=== PATIENT | male | born 1955 | race Caucasian/White ===

== ENCOUNTER → 2020-06-11 | Outpatient (CLI) | payer OTHER ==
[2015-07-31 14:39] VITALS: BP 148/72
[~2020-06-11] MED LIST: ATOR10TA60 PO; CLON-77 PO; GARL100T PO; LOSA-73 PO; OMEP20CA16 PO; SERT100T PO; SIMV40TA PO; TELM40TA PO
[2020-06-11 10:49] LABS: ALBUMIN 4.2 g/dL (3.4-5.0); C-REACTIVE PROTEIN 1.2 mg/L (0-3.3); CALCIUM 9.2 mg/dL (8.5-10.1); GFR 75.5; POTASSIUM 4.5 mmol/L (3.5-5.1)
[2020-06-11 11:33] LABS: BASO # 0.1 x10^3/uL (0.0-0.2); BASO % 1 % (0-3); EOS # 0.1 x10^3/uL (0.0-0.7); EOS % 2 % (0-3); HEMOGLOBIN 15.2 g/dL (13.0-17.5); LYMPH # 1.8 x10^3/uL (1.0-4.8); LYMPH % 35 % (24-48); MEAN CORPUSCULAR HEMOGLOBIN 30 pg (25-35); MEAN CORPUSCULAR HGB CONC 33 g/dL (31-37); MEAN CORPUSCULAR VOLUME 90 fL (79-100); MONO # 0.5 x10^3/uL (0.0-1.1); MONO % 9 % (0-9); NEUT # 2.7 x10^3/uL (1.8-7.7); NEUT % 53 % (31-73); PLATELET COUNT 245 x10^3/uL (140-400); RED BLOOD COUNT 5.13 x10^6/uL (4.30-5.70); RED CELL DISTRIBUTION WIDTH 13.1 % (11.5-14.5); WHITE BLOOD COUNT 5.1 x10^3/uL (4.0-11.0)
[2020-06-11 11:59] LABS: PROTHROMBIN TIME PATIENT 12.2 SEC (11.7-14.0)
--- NOTE | 2020-06-11 13:22 | EKG ---
[facility] [address] [place] [address] Test Date: 2020-06-11 Test Time: 12:33:01 Pat Name: ROXANA GREEN Department: Room: Gender: M [employer] Maker Custom: : 1955 Requested By: ANNALISA CAMPUZANO Order Number: [id number] Reading MD: Merrill Knight MD Measurements Intervals [place] Rate: 75 P: -21 RI: 170 QRS: 19 QRSD: 92 T: 34 QT: 386 QTc: 434 Interpretive Statements SINUS RHYTHM NORMAL ECG RI6.02 No previous ECG available for comparison Electronically Signed On 06-12-2020 10:23:38 CDT by Merrill Knight MD
--- NOTE | 2020-06-11 15:18 | RAD ---
CHEST PA LATERAL INDICATION: Reason: joint prehab patient-hx hypertension-preop eval / Spl. Instructions: / History: . COMPARISON STUDY: None. FINDINGS: Lungs: Normal lung volume. No pulmonary mass or consolidation. The tracheobronchial tree and hilar structures are normal. Pleura: No pleural effusion or pneumothorax. Heart and Mediastinum: The cardiomediastinal silhouette is normal. The great vessels of the thorax are normal. Bones and Soft Tissues: The bones and soft tissues are within normal limits. IMPRESSION: No acute cardiopulmonary process. Electronically signed by: Sumanth Tucker MD (06/11/2020 3:15 PM) [id number]
[2020-06-12 00:08] LABS: HEMOGLOBIN A1C 5.8 % (4.8-5.6)
== END ==
LOC: SURGPAT 12:31
PROVIDERS: ATTEND Orthopaedic Surgery
DX: Z01.818 Encounter for other preprocedural examination (principal); M17.11 Unilateral primary osteoarthritis, right knee; I10 Essential (primary) hypertension
CPT/HCPCS: 36415; 71046; 80048; 82040; 82306; 83036; 85025; 85610; 85730; 86140; 87641; 93005

== ENCOUNTER 2020-06-19 11:43 | Inpatient (IN) | payer OTHER ==
[~2020-06-19] VITALS: Ht 182.9 cm; Wt 95.3 kg
[2020-06-19] VITALS (8 sets, daily range): BP systolic 127–142; BP diastolic 77–84
[2020-06-19] MEDS ORDERED: PROCHLORPERAZINE 10 MG/2 ML VIAL. IV PRN (12:30)
[2020-06-19] MEDS ORDERED: fentaNYL PF VIAL 100 MCG/2 ML VIAL IV PRN (12:30)
[2020-06-19] MEDS ORDERED: ONDANSETRON PF 4 MG/2 ML VIAL. IV PRN (12:30)
[2020-06-19] MEDS ORDERED: HYDROmorphone 2 MG/ML VIAL IV PRN (12:30)
[2020-06-19] MEDS ORDERED: SCOPOLAMINE 1.5MG PATCH. TD ONE (12:45)
[2020-06-19] MEDS: IV RINGERS,LACTATED 1000ML 1,000 ML IV SCH ×2 (12:58→15:19)
[2020-06-19 12:59] LABS: PROTHROMBIN TIME PATIENT 13.6 SEC (11.7-14.0)
[2020-06-19] MEDS: MELOXICAM 7.5 MG TABLET PO SCH (12:59)
[2020-06-19] MEDS ORDERED: TRANEXAMIC ACID 1,000 MG in IV NORMAL SALINE 50ML 50 ML INJ ONE ×2 (13:00→15:00)
[2020-06-19] MEDS ORDERED: ACETAMINOPHEN 500 MG TABLET PO ONE (13:00)
[2020-06-19] MEDS ORDERED: GABAPENTIN 300 MG CAPSULE. PO ONE (13:00)
[2020-06-19] MEDS ORDERED: fentaNYL PF VIAL 250 MCG/5 ML VIAL ONE (13:02)
[2020-06-19] MEDS ORDERED: IV NORMAL SALINE 1000ML BAG 1,000 ML IV SCH (13:24)
[2020-06-19] MEDS ORDERED: VANCOMYCIN 1 GM VIAL. ONE (13:29)
[2020-06-19] MEDS ORDERED: fentaNYL PF VIAL 100 MCG/2 ML VIAL IVP PRN (13:30)
[2020-06-19] MEDS ORDERED: 0.9 % SODIUM CHLORIDE 10 ML DISP.SYRIN. IV PRN (13:30)
[2020-06-19] MEDS ORDERED: ZOLPIDEM 5 MG TABLET. PO PRN (13:30)
[2020-06-19] MEDS ORDERED: MORPHINE SULFATE 2 MG/ML VIAL. IVP PRN (13:30)
[2020-06-19] MEDS ORDERED: diphenhydrAMINE 50 MG/ML VIAL IVP PRN (13:30)
[2020-06-19] MEDS ORDERED: CALCIUM CARBONATE 500 MG TAB.CHEW PO PRN (13:30)
[2020-06-19] MEDS ORDERED: DEXTROSE 50% 25 GM / 50ML DISP.SYRIN. IV PRN (13:30)
[2020-06-19] MEDS ORDERED: PROCHLORPERAZINE 5 MG TABLET. PO PRN (13:30)
[2020-06-19] MEDS ORDERED: ONDANSETRON PF 4 MG/2 ML VIAL. ONE (13:55)
[2020-06-19] MEDS ORDERED: DEXAMETHASONE SOD PHOS 4 MG/ML VIAL ONE (13:55)
[2020-06-19] MEDS ORDERED: MORPHINE SULFATE 5 MG, KETOROLAC 30MG VIAL 30 MG, ROPIVacaine 0.5% PF 60 ML, EPINEPHrin... INT ART ONE (14:00)
[2020-06-19] MEDS ORDERED: PROPOFOL 10 MG/ML (20ML) VIAL. IV ONE (14:48)
[2020-06-19] MEDS ORDERED: SEVOFLURANE > 120 MINUTES. IH ONE (14:48)
[2020-06-19] MEDS ORDERED: LIDOCAINE 2% PF 5 ML VIAL. ONE (14:48)
[2020-06-19] MEDS ORDERED: KETOROLAC 30 MG/ML VIAL. ONE (14:57)
--- NOTE | 2020-06-19 15:06 | PDOC4 ---
Operative Note Operative Note Date of surgery: 06/19/2020 Preoperative diagnosis: Degenerative joint disease right knee Postoperative diagnosis: Same Operative procedure: Right total knee arthroplasty Surgeon: Tarun Anesthesia: General Estimated blood loss: 50 cc Complications: None Drains: Intra-articular pain catheter and Hemovac drain right knee Specimens: Articular surfaces to pathology Operative indications: Please see my previous clinic notes for detailed op erative indications and note that patient has failed nonoperative management for his degenerative change of the right knee and has severe pain affecting his activities of daily living. We had discussed total knee arthroplasty the possibility of infection instability premature wear or loosening nerve or blood vessel damage medical or other anesthetic complications among others. All his questions were answered he agrees to proceed with surgical evaluation and treatment. Operative text: Patient was identified procedure verified patient placed in the supine position on the operating table. After adequate amounts of general anesthesia were administered the right lower extremity was prepped and draped in standard sterile fashion with a thigh tourniquet. After timeout was performed patient procedure identified and verified the right lower extremity was exsanguinated by Esmarch bandage tourniquet inflated to 300 mmHg a midline incision was made with a mid vastus extending to a medial parapatellar approach, patella was everted fat pad was excised distal femur was drilled and distal femoral guide set at a standard cut and 5 degrees. External tibial cutting jig was aligned to the second toe and extension gap showed good alignment. Distal femoral guide was chosen for posterior referencing due to the lack of significant deformity. Based on measurements a size 8 distal femoral cutting block was placed in the appropriate rotation and AP and chamfer cuts were then made. Flexion extension gaps were balanced with a moderate medial release, a size G tibial component was placed drilled and broached and trial fitting carried out with a size 10 medial congruent tibial insert. Excellent stability range of motion and ligament balance was obtained. I elected not to resurface due to good remaining cartilage. Femoral lug holes were drilled trial components were removed bleeding points controlled by electrocautery after thorough irrigation with normal saline solution and the following William persona components were cemented with polymethylmethacrylate cement: A right size G persona natural tibia component, a size 8 cruciate retaining standard right femoral component and a vitamin E medial congruent 10 mm height polyethylene articular surface locked in place. Thorough irrigation carried out normal saline solution excess cement was removed irrigation carried out with dilute Betadine followed by another liter of normal saline solution with pulse lavage. Hemovac drain and intra-articular catheter were placed intra-articular catheter mixture was injected throughout the joint capsule particular attention to around the periosteal surfaces 1 g vancomycin was placed in the joint and the retinacular closure accomplished with #1 PDS strata fix suture in a running fashion subcutaneous closure with buried 2-0 Vicryl suture subcuticular 3-0 strata fix Monocryl, and a diane dressing was placed. Patient was returned to r ecovery room in stable condition having tolerated the procedure well toes were noted to be warm pink following deflation of the tourniquet after total tourniquet time of about 1 hour. ANNALISA CAMPUZANO MD Jun 19, 2020 15:06
[2020-06-19] MEDS ORDERED: PROCHLORPERAZINE 10 MG/2 ML VIAL. ONE (15:11)
[2020-06-19] MEDS: MORPHINE SULFATE 2 MG/ML VIAL. IV PRN ×2 (15:20→15:44)
[2020-06-19] MEDS ORDERED: fentaNYL PF VIAL 100 MCG/2 ML VIAL ONE (15:21)
[2020-06-19] MEDS: fentaNYL PF VIAL 100 MCG/2 ML VIAL IV PRN ×2 (15:22→15:44)
--- NOTE | 2020-06-19 15:48 | RAD ---
Right knee 2 views INDICATION: Postop COMPARISON: 04/05/2020 right knee x-rays FINDINGS: Interval right total knee arthroplasty in good alignment. There is a surgical drain in the operative bed in the gas and fluid in the joint space is present as expected for immediate postoperative appearance. Soft tissues otherwise unremarkable. No acute or aggressive appearing osseous lesions. IMPRESSION: Expected immediate postoperative appearance of right total knee arthroplasty. Electronically signed by: Tomasz Ordonez MD (06/19/2020 3:45 PM) [facility]
[2020-06-19] MEDS ORDERED: WARFARIN 7.5 MG TABLET. PO ONE (16:00)
[2020-06-19] MEDS: FERROUS SULFATE 325 MG TABLET. PO SCH (17:00)
[2020-06-19] MEDS: HYDROmorphone 2 MG TABLET PO PRN ×2 (17:01→21:08)
--- NOTE | 2020-06-19 17:12 | NUR ---
Recieved from PACU per bed, alert/oriented, states discomfort level 10 RLE, IAC, Hemovac in place, ice pack for comfort, IVF infusing into left hand, DEVON hose,SCD/BOO for DVT prevention, Scopalamine patch to behind left ear for nausea, spouse at bedside, call light within reach, see admission for details,
[2020-06-19] MEDS: KETOROLAC 30MG VIAL 30 MG, BUPIVACAINE MPF 0.25% 20 ML, EPINEPHrine 0.5 MG in TOTAL VOL... INT ART SCH (17:46)
[2020-06-19] MEDS: ATORVASTATIN CALCIUM 10 MG TABLET. PO SCH (21:07)
[2020-06-20] MEDS: HYDROmorphone 2 MG TABLET PO PRN ×6 (01:26→22:24)
[2020-06-20 01:52] VITALS: BP 119/82
[2020-06-20 04:18] LABS: PROTHROMBIN TIME PATIENT 15.9 SEC (11.7-14.0)
[2020-06-20] MEDS: GABAPENTIN 100 MG CAPSULE. PO SCH ×3 (05:47→21:15)
[2020-06-20] MEDS: KETOROLAC 30MG VIAL 30 MG, BUPIVACAINE MPF 0.25% 20 ML, EPINEPHrine 0.5 MG in TOTAL VOL... INT ART SCH (05:48)
[2020-06-20] MEDS: traMADol 50 MG TABLET PO SCH ×3 (05:48→18:00)
[2020-06-20] MEDS ORDERED: MAGNESIUM HYDROXIDE 2,400 MG/30 ML ORAL.SUSP. PO PRN (06:00)
[2020-06-20 06:01] VITALS: BP 129/84
[2020-06-20] MEDS: PANTOPRAZOLE 40 MG TABLET.DR. PO SCH (07:08)
[2020-06-20 07:11] LABS: HEMATOCRIT 42.2 % (39.0-53.0)
[2020-06-20] MEDS: LOSARTAN POTASSIUM 25 MG TABLET. PO SCH (08:27)
[2020-06-20] MEDS: FERROUS SULFATE 325 MG TABLET. PO SCH ×2 (08:27→15:58)
[2020-06-20] MEDS: MULTIVITAMIN with MINERAL TABLET. PO SCH (08:27)
[2020-06-20] MEDS: MELOXICAM 7.5 MG TABLET PO SCH ×2 (08:28)
--- NOTE | 2020-06-20 09:47 | NUR ---
Pharmacy Warfarin Dosing Note S:Pharmacy consulted to assist with anticoagulation therapy started with target INR: 1.6 - 2.5 O:ROXANA GREEN is a 65 year old M with TKA LABS: Last INR: 1.3 Last HGB: 14 Last HCT: 42.2 Last PLT: -- Last dose of 7.5 mg given on 06/19/20 at 1700 Drug Interaction Changes: Same Interacting Drug Ongoing Drug Interactions: meloxicam 15 mg A:INR of 1.3 is below desired range. Target range for this patient is: 1.6 - 2.5 P: Warfarin dose: 5 mg Today at 1600 Bridge Therapy: None Next INR due 06/21/20 Pharmacy anticoagulation service will continue to follow. KRYS NIELSEN RPH, 06/20/20 0958
[2020-06-20] MEDS ORDERED: ONDANSETRON PF 4 MG/2 ML VIAL. IVP PRN (12:00)
[2020-06-20] MEDS ORDERED: ONDANSETRON ODT 4 MG TAB.RAPDIS. PO PRN (12:00)
[2020-06-20] MEDS ORDERED: WARFARIN 5 MG TABLET. PO ONE (16:00)
[2020-06-20 18:16] VITALS: BP 105/70
[2020-06-20] MEDS: ATORVASTATIN CALCIUM 10 MG TABLET. PO SCH (21:15)
--- NOTE | 2020-06-20 21:32 | PDOC ---
PROGRESS NOTES Date of Service DATE: 06/20/20 TIME: 21:16 Subjective Subjective Problems overnight: Knee is sore with activity and rest Objective Vital Signs Vital Signs Date Time Temp Pulse Resp B/P (MAP) Pulse Ox O2 Delivery O2 Flow Rate FiO2 06/20/20 19:45 Room Air 06/20/20 19:15 18 96 06/20/20 18:16 98.3 80 105/70 (82) 98.3 06/19/20 18:20 2.0 Physical Exam Good alignment intact distal neurovascular status Labs Laboratory Tests Test 06/19/20 12:00 06/19/20 12:35 06/20/20 03:28 Coronavirus (PCR) Not detected (Not Detected) SARS-CoV-2 Antigen (Rapid) Negative (NEGATIVE) Prothrombin Time 13.6 SEC (11.7-14.0) 15.9 SEC (11.7-14.0) Prothromb Time International Ratio 1.1 (0.8-1.1) 1.3 (0.8-1.1) Activated Partial Thromboplast Time 31 SEC (24-38) Hemoglobin 14.0 g/dL (13.0-17.5) Hematocrit 42.2 % (39.0-53.0) Mean Corpuscular Hemoglobin Concent 33 g/dL (31-37) Laboratory Tests Test 06/20/20 03:28 Hemoglobin 14.0 g/dL (13.0-17.5) Hematocrit 42.2 % (39.0-53.0) Mean Corpuscular Hemoglobin Concent 33 g/dL (31-37) Prothrombin Time 15.9 SEC (11.7-14.0) Prothromb Time International Ratio 1.3 (0.8-1.1) Imaging Postop x-rays show excellent alignment right total knee arthroplasty Assessment Assessment POD#1 right total knee arthroplasty Plan Plan of Care Adjusting pain medications due to multiple medication allergies and limited oral choices Coumadin anticoagulation, mobilize with physical therapy Justicifation of Admission Dx: Justifications for Admission: Justification of Admission Dx: Yes Comments: Multiple medication allergies, transitioning from IV and adjusting oral medications for adequate effect ANNALISA CAMPUZANO MD Jun 20, 2020 21:32
[2020-06-21] MEDS: traMADol 50 MG TABLET PO SCH ×4 (00:36→17:49)
[2020-06-21] MEDS: HYDROmorphone 2 MG TABLET PO PRN ×5 (02:28→20:38)
[2020-06-21] MEDS: PANTOPRAZOLE 40 MG TABLET.DR. PO SCH (06:22)
[2020-06-21] MEDS: GABAPENTIN 100 MG CAPSULE. PO SCH ×2 (06:22→14:56)
[2020-06-21 06:28] VITALS: BP 118/79
[2020-06-21] MEDS ORDERED: MAGNESIUM HYDROXIDE 2,400 MG/30 ML ORAL.SUSP. PO ONE (06:30)
--- NOTE | 2020-06-21 07:40 | NUR ---
Dr. Mcneil here to round, new meds ordered for c/o muscle spasms in RLE posterior & inability to sleep in bed, slept in chair last night, RLE swollen, will continue to observe
[2020-06-21] MEDS ORDERED: CYCLOBENZAPRINE 10 MG TABLET. PO PRN (08:00)
[2020-06-21 08:16] VITALS: BP 108/75
[2020-06-21] MEDS: MELOXICAM 7.5 MG TABLET PO SCH (08:18)
[2020-06-21] MEDS: MULTIVITAMIN with MINERAL TABLET. PO SCH (08:18)
[2020-06-21] MEDS: LOSARTAN POTASSIUM 25 MG TABLET. PO SCH (08:18)
[2020-06-21] MEDS: FERROUS SULFATE 325 MG TABLET. PO SCH ×2 (08:18→16:39)
--- NOTE | 2020-06-21 08:59 | PDOC ---
PROGRESS NOTES Date of Service DATE: 06/21/20 TIME: 08:57 Subjective Subjective Problems overnight: Having a lot of muscle spasms in the back of his leg that really affected his sleep last night and continue to hurt this morning, very limiting to his activity Objective Vital Signs Vital Signs Date Time Temp Pulse Resp B/P (MAP) Pulse Ox O2 Delivery O2 Flow Rate FiO2 06/21/20 08:18 93 108/75 06/21/20 06:28 98.6 20 97 Room Air 98.6 06/19/20 18:20 2.0 Physical Exam He has good ligament balance only a small spot of bloody drainage centrally on the wound no redness or erythema distal neurovascular status intact Labs Laboratory Tests Test 06/19/20 12:00 06/19/20 12:35 06/20/20 03:28 Coronavirus (PCR) Not detected (Not Detected) SARS-CoV-2 Antigen (Rapid) Negative (NEGATIVE) Prothrombin Time 13.6 SEC (11.7-14.0) 15.9 SEC (11.7-14.0) Prothromb Time International Ratio 1.1 (0.8-1.1) 1.3 (0.8-1.1) Activated Partial Thromboplast Time 31 SEC (24-38) Hemoglobin 14.0 g/dL (13.0-17.5) Hematocrit 42.2 % (39.0-53.0) Mean Corpuscular Hemoglobin Concent 33 g/dL (31-37) Assessment Assessment POD#1 right total knee arthroplasty Plan Plan of Care Starting some Flexeril for his muscle spasms and adjusting pain medications as he has multiple allergies and poor tolerance Continue mobilize with physical therapy Justicifation of Admission Dx: Justifications for Admission: Justification of Admission Dx: Yes Comments: Adjusting pain medications has multiple allergies and poor tolerance also starting a muscle relaxer for severe muscle spasms ANNALISA CAMPUZANO MD Jun 21, 2020 08:59
[2020-06-21 12:06] LABS: HEMATOCRIT 39.4 % (39.0-53.0); HEMOGLOBIN 13.2 g/dL (13.0-17.5)
[2020-06-21 12:16] LABS: PROTHROMBIN TIME PATIENT 22.8 SEC (11.7-14.0)
--- NOTE | 2020-06-21 12:50 | NUR ---
Noted intact blister on lateral side of right knee dressing, continues to have edema & warmth RLE
--- NOTE | 2020-06-21 13:21 | NUR ---
Pharmacy Warfarin Dosing Note S: Pharmacy consulted to assist with anticoagulation therapy started 06/19/20 O: ROXANA GREEN is a 65 year old M with TKA LABS: Last INR: 2.0 Last HGB: 13.2 Last HCT: 39.4 Last PLT: -- Last dose of 5 mg given on 06/20/20 at 1559 Ongoing Drug Interactions: meloxicam 15 mg A:INR of 2.0 is within desired range. Target range for this patient is: 1.6 - 2.5 P: Warfarin dose: 1 mg Today at 1600 Next INR due 06/22/20 Pharmacy anticoagulation service will continue to follow. OSBALDO MANUEL RPH, 06/21/20 [id number]
[2020-06-21] MEDS ORDERED: WARFARIN 1 MG TABLET. PO ONE (16:00)
[2020-06-21] MEDS: POLYETHYLENE GLYCOL 3350 17 GM PACKET. PO PRN (16:24)
--- NOTE | 2020-06-21 16:46 | NUR ---
Iron held for c/o constipation
--- NOTE | 2020-06-21 17:55 | NUR ---
Drowsy at this time, falls asleep easily, held Ultram, voiced opinion about next dose of Hydromorphone due at 1900, will reassess at that time, up in lounge chair with feet elevated
[2020-06-21 18:20] VITALS: BP 114/77
--- NOTE | 2020-06-21 18:58 | NUR ---
Sleeping, snoring, Hydromorphone held, un in bedside chair with feet elevated.
[2020-06-21] MEDS: ATORVASTATIN CALCIUM 10 MG TABLET. PO SCH (20:38)
[2020-06-22] MEDS: GABAPENTIN 100 MG CAPSULE. PO SCH ×3 (00:31→13:16)
[2020-06-22] MEDS: traMADol 50 MG TABLET PO SCH ×3 (00:31→12:00)
--- NOTE | 2020-06-22 04:40 | NUR ---
Sleeping in recliner. Requests pain pain. Dilaudid given po per request.
[2020-06-22] MEDS: HYDROmorphone 2 MG TABLET PO PRN ×3 (04:41→13:16)
[2020-06-22 05:43] LABS: HEMATOCRIT 37.8 % (39.0-53.0); HEMOGLOBIN 12.6 g/dL (13.0-17.5)
[2020-06-22 06:06] VITALS: BP 121/89
[2020-06-22] MEDS: PANTOPRAZOLE 40 MG TABLET.DR. PO SCH (06:59)
--- NOTE | 2020-06-22 07:16 | NUR ---
Slept in bedside lounge chair, c/o discomfort in RLE [place] area, continued edema, warmth of extremity no more than compared to other extremity, limited ROM, states he thinks it's in his head, referring to inability to bend knee, will continue to observe
[2020-06-22] MEDS: FERROUS SULFATE 325 MG TABLET. PO SCH (08:00)
[2020-06-22 08:29] VITALS: BP 109/74
[2020-06-22] MEDS: MELOXICAM 7.5 MG TABLET PO SCH (08:29)
[2020-06-22] MEDS: MULTIVITAMIN with MINERAL TABLET. PO SCH (08:29)
[2020-06-22] MEDS: POLYETHYLENE GLYCOL 3350 17 GM PACKET. PO PRN (08:30)
[2020-06-22] MEDS: LOSARTAN POTASSIUM 25 MG TABLET. PO SCH (08:32)
--- NOTE | 2020-06-22 08:48 | NUR ---
Venu held r/t v/s 109/74-93
--- NOTE | 2020-06-22 08:50 | NUR ---
Ferrous Sulfate held r/t constipation, given prn Miralax, stated pain is off the chart with OT personnel, had just stated it was 01/24
--- NOTE | 2020-06-22 10:15 | NUR ---
Pharmacy Warfarin Dosing Note S:Pharmacy consulted to assist with anticoagulation therapy started 06/19/20 with target INR: 1.6 - 2.5 O:ROXANA GREEN is a 65 year old M with TKA LABS: Last INR: 1.7 Last HGB: 13.2 Last HCT: 39.4 Last PLT: -- Last dose of 1 mg given on 06/21/20 at 1559 Previous Regimen: Vitamin K given: Drug Interaction Changes: Same Interacting Drug Ongoing Drug Interactions: meloxicam 15 mg A:INR of 1.7 is within desired range. Target range for this patient is: 1.6 - 2.5 P: Warfarin dose: 3 mg Prior to Discharge Bridge Therapy: None Next INR due 06/25, 07/09, 07/16 Pharmacy anticoagulation service will continue to follow. HOSSEIN CURTIS RPH, 06/22/20 1015 Addendum: 06/22/20 at 1111 by HOSSEIN CURTIS RPH PHA Pharmacy Warfarin Dosing Note S:Pharmacy consulted to assist with anticoagulation therapy started 06/19/20 with target INR: 1.6 - 2.5 O:ROXANA GREEN is a 65 year old M with TKA LABS: Last INR: 1.7 Last HGB: 13.2 Last HCT: 39.4 Last PLT: -- Last dose of 1 mg given on 06/21/20 at 1559 Previous Regimen: Vitamin K given: Drug Interaction Changes: Same Interacting Drug Ongoing Drug Interactions: meloxicam 15 mg A:INR of 1.7 is within desired range. Target range for this patient is: 1.6 - 2.5 P: Warfarin dose: 3 mg Prior to Discharge, AND 3MG TABLETS #30 SENT WITH PATIENT. Bridge Therapy: None Next INR due 06/25, 07/02, 07/09 Pharmacy anticoagulation service will continue to follow. HOSSEIN CURTIS [facility], 06/22/20 [id number]
[2020-06-22] MEDS ORDERED: WARFARIN 3 MG TABLET. PO ONE (14:00)
[2020-06-22 14:34] VITALS: BP 117/71
[2020-06-22] MEDS ORDERED: HYDR2TAB31 PO (14:50)
[2020-06-22] MEDS ORDERED: WARF3TAB50 PO (14:50)
--- NOTE | 2020-06-22 14:52 | DISCH ---
DISCHARGE INSTRUCTIONS Condition on Discharge Condition on Discharge: Stable Activity After Discharge Activity Instructions for Disc: Progressive ambulation Bathing Instructions: Shower-keep dressing dry Weight Bearing Status after Di: As tolerated Diet after Discharge Diet after Discharge: Regular Wound Incision Care Wound/Incision Care: Ice to area for comfort, Keep wound/cast CDI, Do not change dressing (Call if diane dressing saturated, otherwise maintain intact, cut and tape over tail when suction machine quits to maintain seal dressing) Contacting the DRArmida after DC Call your doctor for: Concerns you may have Follow-Up Follow up with: Dr. Mcneil 2 weeks postop Warfarin Follow-Up Warfarin Follow UP: [place] [facility] antico clinic to monitor Coumadin dosing and testing ANNALISA MCNEIL MD Jun 22, 2020 14:52
--- NOTE | 2020-06-22 14:56 | SNU/HH DC ---
DISCHARGE WITH HOME HEALTH DISCHARGE INFORMATION: Condition on Discharge: Stable CODE STATUS: Code Status: Full HOME HEALTH: Face to Face: I certify this patient is under my care and that I, or a nurse practitioner or physician's editorial assistant working with me, had a face to face encounter that meets the physician face to face encounter requirements with this patient on [06/22/20]. Medical Complications: S/P Joint Replacement Fdc For: Assess/Skilled Observatio RN For Eval/Treatment: Yes Physical Therapy For: Evalulation/Treatment Pt Meets Homebound Status: Limited distance walking POST DISCHARGE ORDERS: Activity Instructions for Disc: Progressive ambulation Weight Bearing Status after Di: As tolerated Bathing Instructions: Shower-keep dressing dry Wound/Incision Care: Ice to area for comfort, Keep wound/cast CDI, Do not change dressing (Call if diane dressing saturated, otherwise maintain intact, cut and tape over tail when suction machine quits to maintain seal dressing) FOLLOW-UP: Follow up with: Dr. Mcneil 2 weeks postop Warfarin Follow UP: [place] [facility] anticoag clinic to monitor Coumadin dosing and testing CERTIFICATION STATEMENT: Certification Statement: Certification Statement: Based on the above finding, I certify that this patient is confined to the home and needs intermittent group home care, physical therapy and/or speech therapy, or continues to need occupational therapy.~ This patient is under my care, and I have initiated the establishment of the plan of care.~ This patient will be followed by myself or a community physician who will periodically review the plan of care. Home Meds Reported Medications Garlic (GARLIC) 100 Mg Tablet, 100 MG PO DAILY for SUPPLEMENT, TAB 06/13/20 Losartan Potassium (LOSARTAN POTASSIUM) 50 Mg Tablet, 25 MG PO DAILY for HYPERTENSION, TAB 06/13/20 Atorvastatin Calcium (ATORVASTATIN CALCIUM) 10 Mg Tablet, 10 MG PO DAILY for FOR CHOLESTEROL, #30 TAB 0 Refills 06/13/20 Omeprazole (OMEPRAZOLE) 20 Mg Capsule., 1 CAP PO DAILY, #30 CAP 5 Refills 07/31/15 ANNALISA MCNEIL MD Jun 22, 2020 14:56
--- NOTE | 2020-06-22 16:00 | NUR ---
Discharge to home per w/c accompanied by spouse, see instruction sheet for details, belongings taken with him
--- NOTE | 2020-06-22 22:06 | PATHOLOGY ---
[facility] Accession Number: [id number] . 01 Material submitted: . knee - RIGHT KNEE BONE AND TISSUE. Modifiers: right . 01 Clinical history: . DEGENERATIVE ARTHRITIS . 02 Diagnosis: "Right knee bone and tissue", total knee arthroplasty/joint resection: - Decalcified bone and articular cartilage with degenerative joint disease. - Scant synovium with reactive changes. (CLW/db; 06/22/2020) LBQ 06/22/2020 1539 Local . 02 Electronically signed: . Lo Rosas MD, Pathologist NPI- [id number] . 01 Gross description: . Received in formalin labeled "Alvin Hua, right knee bone and tissue" are multiple portions of [place]-white bone and scant attached [place]-white soft tissue measuring in aggregate 12.5 x 9.5 x 2.5 cm. Multiple aspects of the bone have [place]-white cartilaginous articular surfaces, which display roughening and eburnation. The remaining aspects of the bone displays smooth surgical margins. University [employer] tissue is submitted in cassettes A1-A2 following decalcification. ([facility]; 06/21/2020) [facility] 06/21/2020 1607 Local . 02 Pathologist provided ICD-10: M17.11 . 02 CPT . 230129, 477203 Specimen Comment: A courtesy copy of this report has been sent to [phone], [phone] Specimen Comment: [id number] Specimen Comment: Report sent to / DR MARQUES Performed at: 01 [facility] [address], [place], [place] [id number] MD Vipul Zepeda MD Phone: [phone] Performed at: 02 [facility] [address] [place], [place] [id number] MD Roland Tinoco MD Phone: [phone]
== END 2020-06-22 16:03 | disposition home health service (06) | DRG 470 ==
LOC: SURG 11:43 → 4 SOUTHEST 13:24 → OBSVTOIN 06-21 10:24
PROVIDERS: ADMIT Orthopaedic Surgery; ATTEND Orthopaedic Surgery
PROC: 0SRC0J9 Replacement of Right Knee Joint with Synthetic Substitute, Cemented, Open Approach (ICD-10-PCS; principal; 2020-06-19 14:00)
DX: M17.11 Unilateral primary osteoarthritis, right knee (principal); M62.838 Other muscle spasm; Z20.828 Contact with and (suspected) exposure to other viral communicable diseases; Z88.8 Allergy status to other drugs, medicaments and biological substances
CPT/HCPCS: 36415; 73560; 85014; 85018; 85610; 85730; 86850; 86900; 86901; 87426; A7015; C1713; G0378; G0379; J0171; J0690; J0780; J1100; J1885; J2270; J2405; J2704; J2795; J3010; J3370; J3490; J7030; J7120; U0003; 97116-GP; 97150-GP; 97530-GO; 97530-GP; 97535-GO; C1769

== ENCOUNTER 2020-06-25 09:18 | Emergency (ER) | payer OTHER ==
[~2020-06-25] VITALS: Ht 180.3 cm; Wt 93.0 kg
[~2020-06-25 09:18] MED LIST changes: +HYDR2TAB31 PO; +WARF3TAB50 PO
[2020-06-25] MEDS ORDERED: IV NORMAL SALINE 1000ML BAG 1,000 ML IV ONE (10:30)
--- NOTE | 2020-06-25 10:33 | RAD ---
Right knee: 06/25/2020 9:48 AM. Reason for study: Status post right knee arthroplasty Comparison: Right knee radiograph 04/05/2020 Technique: Two views of the right knee are obtained. Findings: There are findings consistent with recent right total knee arthroplasty, with hardware in good alignment and position. Immediate postsurgical changes within the regional soft tissues are noted. No complications are evident. Impression: Status post right total knee arthroplasty. Electronically signed by: Rosita Ricci MD (06/25/2020 10:31 AM) [id number]
--- NOTE | 2020-06-25 10:43 | PHYS DOC ---
Past Medical History Past Medical History: Anxiety, High Cholesterol, Hypertension Past Surgical History: Knee Replacement, Other Additional Past Surgical Histo: knee, carpal tunnel, trigger finger, shoulder, ankle Smoking Status: Never Smoker Alcohol Use: Occasionally Drug Use: None General Adult EDM: Chief Complaint: KNEE SWELLING HPI: HPI: Patient is a 65 year old male who presents with right knee pain and swelling that started yesterday at 2130. The pt had a knee replacement last Thursday. Pt stated that he went to physical therapy thursday, , and thursday. Last night, the pain came on out of nowhere and is rated 10/10 when standing. The pain does not radiate. Pt does state he has a pmh of gout but says the pain is different from that. Review of Systems: Review of Systems: Constitutional: Denies fever or chills Eyes: Denies redness or eye pain HENT: Denies nasal congestion or sore throat Respiratory: Denies cough or shortness of breath Cardiovascular: Denies chest pain or palpitations GI: Denies abdominal pain, nausea, or vomiting : Denies dysuria or hematuria Musculoskeletal: Denies back pain Integument: Denies rash or skin lesions Neurologic: Denies headache, focal weakness or sensory changes Complete systems were reviewed and found to be within normal limits, except as documented in this note. Allergies: Allergies: Allergies Coded Allergies Type Severity Reaction Last Updated Verified acetaminophen Adverse Reaction Intermediate Nausea and Vomiting 06/19/20 Yes hydrocodone Adverse Reaction Intermediate Nausea and Vomiting 06/19/20 Yes oxycodone Adverse Reaction Intermediate Nausea and Vomiting 06/19/20 Yes Physical Exam: PE: Constitutional: Well developed, well nourished, no acute distress, non-toxic appearance HENT: Normocephalic, atraumatic Eyes: Conjunctiva normal, no discharge Neck: Normal range of motion, no tenderness, supple Lungs & Thorax: No respiratory distress, equal chest rise and fall Abdomen: Soft, no tenderness Skin: Warm, dry, no erythema, no rash Back: No tenderness, no CVA tenderness Extremities: swelling over right knee joint, tender to palpation, joint is warm to the touch, erythema noted on anterior tibia Neurologic: Alert and oriented X 3, normal motor function, normal sensory function, no focal deficits noted Psychologic: Affect normal, judgment normal Current Patient Data: Vital Signs: Vital Signs Date Time Temp Pulse Resp B/P (MAP) Pulse Ox O2 Delivery O2 Flow Rate FiO2 06/25/20 09:29 98.9 97 18 133/76 (95) 97 Room Air 98.9 EKG: EKG: [] Radiology/Procedures: Radiology/Procedures: PROCEDURE: KNEE RIGHT 3V Right knee: 06/25/2020 9:48 AM. Reason for study: Status post right knee arthroplasty Comparison: Right knee radiograph 04/05/2020 Technique: Two views of the right knee are obtained. Findings: There are findings consistent with recent right total knee arthroplasty, with hardware in good alignment and position. Immediate postsurgical changes within the regional soft tissues are noted. No complications are evident. Impression: Status post right total knee arthroplasty. Electronically signed by: Rosita Ricci MD (06/25/2020 10:31 AM) [id number] Course & Med Decision Making: Course & Med Decision Making Pertinent Labs and Imaging studies reviewed. (See chart for details) 65 year old male patient presents with right knee pain after knee replacement 6 days ago. X-ray demonstrated post surgical changes. Labs ordered and posted. Pt had a normal white count and was afebrile. Ortho consulted and stated patient was okay to discharge. Dragon Disclaimer: [employer] Disclaimer: This electronic medical record was generated, in whole or in part, using a voice recognition dictation system. Departure Departure Impression: Primary Impression: Postoperative pain of knee Disposition: 01 DC HOME SELF CARE/HOMELESS Condition: STABLE Referrals: ROXANA MARQUES MD (PCP) ANNALISA CAMPUZANO MD Patient Instructions: Pain Relief Preoperatively and Postoperatively, Total Knee Replacement, Care After, [id number] Additional Instructions: Please follow up closely with your orthopedic surgeon regarding your knee care and pain SUKUMAR MAST DO Jun 25, 2020 10:43
[2020-06-25 11:36] LABS: BASO # 0.1 x10^3/uL (0.0-0.2); BASO % 1 % (0-3); EOS # 0.1 x10^3/uL (0.0-0.7); EOS % 2 % (0-3); HEMOGLOBIN 13.3 g/dL (13.0-17.5); LYMPH # 1.2 x10^3/uL (1.0-4.8); LYMPH % 15 % (24-48); MEAN CORPUSCULAR HEMOGLOBIN 30 pg (25-35); MEAN CORPUSCULAR HGB CONC 34 g/dL (31-37); MEAN CORPUSCULAR VOLUME 88 fL (79-100); MONO # 0.8 x10^3/uL (0.0-1.1); MONO % 10 % (0-9); NEUT # 5.7 x10^3/uL (1.8-7.7); NEUT % 72 % (31-73); PLATELET COUNT 309 x10^3/uL (140-400); RED BLOOD COUNT 4.43 x10^6/uL (4.30-5.70); RED CELL DISTRIBUTION WIDTH 12.7 % (11.5-14.5); WHITE BLOOD COUNT 7.9 x10^3/uL (4.0-11.0)
--- NOTE | 2020-06-25 11:36 | RAD ---
Right lower extremity venous Doppler ultrasound History: Right leg and knee swelling, postop right knee replacement June 19, 2020. Comparison: None. Procedure: Color flow Doppler, Doppler spectral analysis, and 2D images are obtained with and without compression in the area of the common femoral vein, superficial femoral vein - femoral vein junction, main femoral vein (superficial femoral vein) and popliteal vein. Veins of the proximal calf are also imaged. Findings: There is normal color flow, augmentation, and compressibility of all visualized vein segments. No evidence of deep venous thrombus is present. There is color flow in the peroneal and posterior tibial veins. Ultrasound is negative in the medial calf area of redness. IMPRESSION: No evidence of right lower extremity deep venous thrombosis. Electronically signed by: Anil Delarosa MD (06/25/2020 11:33 AM) [id number]
[2020-06-25 11:52] LABS: CREATININE 0.9 mg/dL (0.7-1.3); GFR 85.2; POTASSIUM 4.3 mmol/L (3.5-5.1)
[2020-06-25 12:05] LABS: ALBUMIN 3.5 g/dL (3.4-5.0); ALBUMIN/GLOBULIN RATIO 0.8 (1.0-1.7); MAGNESIUM 2.7 mg/dL (1.8-2.4); TOTAL PROTEIN 7.7 g/dL (6.4-8.2)
[2020-06-25 13:00] VITALS: BP 128/81
== END 2020-06-25 13:15 | disposition home or self-care (01) ==
LOC: ER 09:18
DX: G89.18 Other acute postprocedural pain (principal); M25.561 Pain in right knee; R60.0 Localized edema; L53.9 Erythematous condition, unspecified; F41.9 Anxiety disorder, unspecified; E78.00 Pure hypercholesterolemia, unspecified; I10 Essential (primary) hypertension; Z98.890 Other specified postprocedural states; Z88.5 Allergy status to narcotic agent; Z88.8 Allergy status to other drugs, medicaments and biological substances
CPT/HCPCS: 36415; 73562; 80053; 83605; 83735; 84550; 85025; 87040; 93971; 96360; 99285; J7030

== ENCOUNTER → 2021-02-20 | Outpatient (CLI) | payer OTHER ==
--- NOTE | 2021-02-20 17:15 | KCIC ---
RS Compliance Statement: One or more of the following individualized dose reduction techniques were utilized for this examinat ion: 1. Automated exposure control 2. Adjustment of the mA and/or kV according to patient size 3. Use of iterative reconstruction technique Coronary calcium score CT chest without contrast History: Hypertension, cardiovascular screening, hyperlipidemia. Family history of CAD. COMPARISON: None. Technique: With retrospective electrocardiogram gating axial reconstructed noncontrast images of the chest at the level of the coronary arteries was performed. Images were post processed on workstation and calcium score calculated using the modified Agatston Janowitz protocol. Findings: Total coronary calcium score is 178.7. This is a moderate plaque burden and moderate to hig h cardiovascular disease risk. This is based on the calcium score of 154.3 of the left main coronary artery, 23.4 of the left anterior descending artery, score of 1 of the left circumflex artery and sco re of 0 of the right coronary artery. Noncoronary findings demonstrate ectasia of the ascending thoracic aorta, diameter is 3.9 cm. The pul monary trunk is normal caliber. Cardiac size is normal, no pericardial effusion. There is fatty infil tration of the visualized liver. There is no pleural abnormality. Central airways are patent. Visuali zed lungs are clear. Visualized bones unremarkable. IMPRESSION: Patient's total calcium score is 178.7. Electronically signed by: Anil Delarosa MD (02/20/2021 5:13 PM) [id number]
== END ==
LOC: KCIC CT 14:12
PROVIDERS: ATTEND Internal Medicine Cardiovascular Disease
DX: I10 Essential (primary) hypertension (principal); R91.8 Other nonspecific abnormal finding of lung field; I77.810 Thoracic aortic ectasia
CPT/HCPCS: 75571